=== PATIENT | female | born 1990 | race Caucasian/White ===

== ENCOUNTER 2019-04-08 14:24 | Emergency (ER) | payer SELFPAY ==
[~2019-04-08] VITALS: Ht 152.4 cm; Wt 147.4 kg
--- NOTE | 2019-04-08 14:35 | ER Report ---
History and Physical Time Seen By MD: 14:35 HPI/ROS CHIEF COMPLAINT: Diffuse abdominal pain HISTORY OF PRESENT ILLNESS: Patient is a 28-year-old female approximately 23 weeks gestational age traveling from [place] to [place]. Patient reports that she has had intermittent diffuse abdominal cramping pain which is been ongoing for the past several days acutely worsening today. Patient's brought her in to the hospital for evaluation due to her persistent pain. Patient reports that she has been given medications to hold premature contractions twice during this . Patient reports having 17 pregnancies, 2 live children who were delivered prematurely via , the other pregnancies were miscarriages. Patient denies fevers, chills, chest pain, shortness of breath, vaginal bleeding or vaginal discharge. Labor and delivery was contacted upon patient arrival. REVIEW OF SYSTEMS: Constitutional: No fever, no chills. Eyes: No discharge. ENT: No sore throat. Cardiovascular: No chest pain, no palpitations. Respiratory: No cough, no shortness of breath. Gastrointestinal: + Diffuse cramping abdominal pain, no vomiting. Genitourinary: No hematuria or vaginal bleeding Musculoskeletal: No back pain. Skin: No rashes. Neurological: No headache. Constitutional Vital Sign - Last 24 Hours 04/08/19 14:35 Temp 97.9 Pulse 97 Resp 20 B/P (MAP) 126/70 Pulse Ox 96 O2 Delivery Room Air Physical Exam General Appearance: The patient is alert, has no immediate need for airway protection and no signs of toxicity. Uncomfortable appearing Eyes: Pupils equal and round no pallor or injection. ENT, Mouth: Mucous membranes are moist. Respiratory: There are no retractions, lungs are clear to auscultation. Cardiovascular: Regular rate and rhythm. Gastrointestinal: Gravid abdomen, diffusely tender on palpation, bowel sounds normal. Neurological: No focal neurological deficits Skin: Warm and dry, no rashes. Musculoskeletal: Neck is supple non tender. Extremities are nontender, nonswollen and have full range of motion. DIFFERENTIAL DIAGNOSIS: After history and physical exam differential diagnosis was considered for abdominal pain including but not limited to appendicitis, cholecystitis, gastritis and urinary tract infection, premature labor, placental abruption, placental previa Medical Decision Making ED Course/Re-evaluation ED Course Patient is a 28-year-old female here with complaints of diffuse cramping abdominal pain and the settings of 23 week chest patient will which is the patient's 17th with 2 live children the rest of which were miscarriages. Patient reports progressive worsening abdominal pain for the past several days prompting evaluation. Bedside ultrasound showed good movement, heartbeat intact approximately 140s to 150s. Patient labs were ordered and were in process at time of admission to labor and delivery. Patient was given IV fluids and transported to the floor in stable condition. Decision to Disposition Date: April 08, 2019 Decision to Disposition Time: 14:59 Depart Departure Latest Vital Signs Vital Signs Date Time Temp Pulse Resp B/P (MAP) Pulse Ox O2 Delivery O2 Flow Rate FiO2 04/08/19 14:35 97.9 97 20 126/70 96 Room Air Impression: Primary Impression: Abdominal pain affecting Condition: Condition Unchanged Disposition: Admitted from ER RAUL UNDERWOOD DO April 08, 2019 14:35
[2019-04-08] MEDS ORDERED: NS(*) 0.9% 1000 ML BAG 1,000 ML IV ONE (14:51)
[2019-04-08] MEDS ORDERED: fentaNYL CITR 100 MCG/2 ML AMP IVP ONE (14:55)
[2019-04-08 15:19] LABS: PLATELET COUNT, AUTOMATED 301 K/uL (150-450)
[2019-04-08 15:21] LABS: INR 0.96
--- NOTE | 2019-04-08 16:54 | History & Physical ---
History of Present Illness Age of Patient: 28 : 17 Para or TPAL: 2 EDC per LMP: Aug 11, 2019 Estimated Gestational Age: 22 Chief Complaint back and abdominal pain History of Present Illness Pt is a 17 2. PT reports 17 SAB and two births. One at 31 weeks and one at 35 weeks, both were c/sections. PT states she went into spontaneous labor both times. She is currently driving cross country from [place] to [place] where she plans to re-establish PNC. She had one appt in [place] in the early first trimester and had an u/s that confirmed her due date. She reports this nonspecific pain on and off all week. She states she stopped at a hospital in [place] and they gave her a shot for her " labor." Review of Systems Constitutional: Weight Gain; No Fever, No Weight Loss Cardiovascular: No Chest Pain Respiratory: No Shortness of Breath Gastrointestinal: No Nausea, No Vomiting, No Diarrhea, No Constipation; Abdominal Pain Genitourinary: No Dysuria Musculoskeletal: Pain (mid and low back ) Psychiatric: Other (pt reports mental health "issues") Exam General Exam Vital Signs Vital Signs Date Time Temp Pulse Resp B/P (MAP) Pulse Ox O2 Delivery O2 Flow Rate FiO2 04/08/19 14:59 91 111/63 (79) 04/08/19 14:35 97.9 20 96 Room Air General Apperance: Alert/Awake/No Acute Distress (pt sound asleep in bed when I entered the room. ) Neuro: No Gross deficits Eyes: Normal Extraocular Movement & Vison Abdomen: Other (morbidly obese, unable to feel uterus, pt has tenderness all over abdomen and in her pannus even with mild touch. ) Extremities: No Cyanosis,Clubbing or Edema Integumentary: Skin Intact without Lesions or Rash Psychological: Alert & Oriented X3, Appropriate Mood & Affect Cervical Dialation: 0 Cervical Effacement (%): 0 Cervical Consistency: Firm Cervical Position: Posterior Presentation: Transverse (limited bedside u/s performed showing viable IUP with movement and heart activity. I was unable to calculate the heart rate due to pts morbid obesity ) Uterine Contractions(Q min): 0 Medical Decision Making Data Points Result Diagram: 04/08/19 8068 04/08/19 5756 Assessment and Plan PROJECT MANAGEMENT IT SPECIALIST Assessment: Stable PROJECT MANAGEMENT IT SPECIALIST Plan: Discharge Home Today Problems: (1) Abdominal pain affecting Status: Acute Assessment & Plan: No evidence of active contractions. Cervix is closed, thick and high. Pt counseled to maintain adequate hydration and frequent stops while driving cross country. Pt counseled to seek PNC immediately once she reaches her destination. PT also counseled that her random blood glucose was elevated today and she may likely have overt diabetes which needs to be managed in very closely. Pt stable for d/c at this time. EDEL LUCAS DO April 08, 2019 16:54
[2019-04-08] MEDS ORDERED: ACETAMINOPHEN 500 MG TAB PO ONE (17:00)
[2019-04-08] MEDS ORDERED: NITROFURANTOIN MONO 100 MG PO ONE (17:00)
[2019-04-08 17:45] VITALS: BP 129/64; Ht 152.4 cm; Wt 147.4 kg
== END 2019-04-08 15:50 | disposition home or self-care (01) ==
LOC: ER 15:42 → OB 15:50 → ER 15:50 → UNDOADMIN 15:50 → UNDODISIN 17:30
DX: O26.892 Other specified pregnancy related conditions, second trimester (principal)
CPT/HCPCS: 81001; 83605; 83690; 84702; 85025; 85610; 85730; 99213; 99284; J7030; 82040; 82247; 82310; 82374; 82435; 82565; 82947; 84075; 84132; 84155; 84295; 84450; 84460; 84520; 99281